=== PATIENT | female | born 1960 | race Caucasian/White ===

== ENCOUNTER 2018-06-12 14:53 | Inpatient (IN) ==
[2018-06-12] MEDS ORDERED: *HR* OxyCODONE Immed Rel 5 MG TABLET PO PRN ×2 (15:34→15:47)
[2018-06-12] MEDS ORDERED: D5% in Water 1,000 ML IVC PRN (15:46)
[2018-06-12] MEDS ORDERED: *HR* Dextrose 50 % in Water (Syg) 50 ML SYRINGE IVP PRN (15:46)
[2018-06-12] MEDS ORDERED: Dextrose Gel 15 GM/37.5 ML TUBE PO PRN ×2 (15:46)
[2018-06-12] MEDS ORDERED: Mag Hydrox/Al Hydrox/Simeth 30 ML UDC PO PRN (16:05)
[2018-06-12] MEDS ORDERED: Ondansetron ODT 4 MG TAB.RAPDIS SL PRN (16:05)
[2018-06-12] MEDS: Insulin LISPRO 300 UNITS/3 ML VIAL SQ SCH ×2 (17:25→20:08)
[2018-06-13] MEDS: *HR* Enoxaparin 40 MG/0.4 ML SYRINGE SQ SCH (05:49)
[2018-06-13] MEDS: Acetaminophen 325 MG TABLET PO PRN (05:49)
[2018-06-13 06:07] LABS: Basophils % 0.3 %; Eosinophils % 0.3 %; Hematocrit 25.9 % (35.3-44.9); Hemoglobin 8.6 g/dL (11.5-15.4); Immature Granulocytes % 0.4 % (0-4); Lymphocytes # 1.6 K/mcL (0.6-4.6); Lymphocytes % 17.5 %; Mean Corpuscular HGB Conc 33.2 g/dL (31.6-35.5); Mean Corpuscular Hemoglobin 32.1 pg (28.0-33.3); Mean Corpuscular Volume 96.6 fL (83.0-100.0); Mean Platelet Volume 11.3 fL (9.4-12.4); Monocytes # 0.8 K/mcL (0.0-1.3); Monocytes % 8.6 %; Neutrophils # 6.6 K/mcL (1.6-8.9); Platelet Count 132 K/mcL (140-400); Red Blood Count 2.68 M/mcL (3.82-4.97); Red Cell Distribution Width 12.8 % (11.5-14.5); Segmented Neutrophils % 72.9 %
[2018-06-13 06:13] LABS: INR 1.3; Prothrombin Time 14.4 Seconds (9.4-12.1)
[2018-06-13 06:16] LABS: Activated Partial Thrombo Time 26.1 Seconds (26.0-36.0)
[2018-06-13 06:24] LABS: BUN/Creatinine Ratio 21 (6-26); Blood Urea Nitrogen 16 mg/dL (6-20); Calcium 8.6 mg/dL (8.6-10.3); Carbon Dioxide 28 mEq/L (23-29); Chloride 104 mEq/L (98-107); Glucose 116 mg/dL (70-105); Osmolality,Calculated 288 (280-300); Potassium 3.3 mEq/L (3.5-5.1); Sodium 138 mEq/L (136-145); eGFR For Non-African Americans > 60 (> 60)
[2018-06-13] MEDS: Multivit/Ca/Min/Fe/FA 1 TAB TABLET PO SCH (08:33)
[2018-06-13] MEDS: *HR* Glimepiride 2 MG TABLET PO SCH (08:33)
[2018-06-13] MEDS: Cyanocobalamin (B-12) 1,000 MCG TABLET PO SCH (08:33)
[2018-06-13] MEDS: Cholecalciferol (D-3) 1,000 UNIT TABLET PO SCH (08:33)
[2018-06-13] MEDS: Aspirin 81 MG TAB.CHEW PO SCH (08:33)
[2018-06-13] MEDS: Insulin LISPRO 300 UNITS/3 ML VIAL SQ SCH ×4 (08:34→20:03)
[2018-06-13] MEDS: (Liraglutide [Victoza 2-Pak] 1.8 MG) SQ SCH (08:35)
--- NOTE | 2018-06-13 10:44 | Internal Med History&Physical ---
Addendum entered and electronically signed by Franklyn John MD 06/13/18 11:28: I have personally performed a face to face evaluation on this patient. I have r eviewed and agree with the care plan. History and Exam by me shows: Patient status post left total hip replacement at [place], Dr. Dowell, on 06/10/2018. She states her postoperative course is uneventful and she has been moving bowels and bladder well. She denies other postoperative complications ex cept itching with her sleep apnea mask which was new. Past medical history includes diabetes, [id number] achieved with Victoza, hypertension, hyperlipidemia, GERD, left breast cancer with lumpectomy, radiation and chemotherapy in 2004, benign breast lump right. She is allergic to adhesives and to penicillin. She had a heart catheterization about 2 years ago which showed only nonobstr uctive disease. As well as that noted above, she has bilateral carpal tunnel and a remote D&C. She works at [employer], is and lives with her , is a 87-50-qnyi-year smoking history but stopped about a year and half ago. She rarely drinks a beer or wine cooler. She smoked marijuana but over 30 years ago. She uses CPAP overnight for sleep apnea. She wears eyeglasses. She has acute blood loss anemia secondary to her surgery, as noted. Patient has no complaint of chest discomfort, dyspnea, orthopnea, breathing problems, palpitations, nausea or vomiting, constipation or diarrhea, other changes in bowel habits, heartburn, difficulty with urination, kidney problems or kidney stones, fevers chills or sweats, rash or itching, seizures, headache or lightheadedness, heat or cold intolerance, blood problems or anemia, or other new complaints, except as mentioned above. Review of systems is otherwise negative. Examination: (Except as mentioned above): General: In no apparent distress, alert and oriented 3. Head: Atraumatic and normocephalic. Eyes: Extraocular muscles are intact, pupils equal round and reactive to light and accommodation. Sclerae anicteric. Ears: External ears are normal to inspection and hearing is grossly normal. Nose: Patent without lesion noted. Mouth: No intraoral lesions seen. Dentition is unremarkable. Neck: Supple with trachea midline. There is no thyromegaly or adenopathy and carotids are 2+ without bruit heard. Respiratory: No use of accessory muscles. Lungs are clear throughout. Normal airflow. Cardiovascular: Regular rate and rhythm without murmur appreciated. Abdomen: Bowel sounds are normal. No hepatosplenomegaly masses or tenderness. Morbidly obese and therefore difficult to palpate deeply. Extremities: No cyanosis clubbing or edema. Neurological: A and O 3. Cranial nerves II through XII are intact. No focal deficits and no abnormal movements or postures. Skin: Warm and non-diaphoretic with no lesions noted. Breasts, pelvic and rectal: Not examined. is bringing her injectable diabetic medication and her home CPAP unit. She feels that she progressed well with therapy, this morning. She would prefer not to take oxycodone so this is changed to Ultram which she uses at home. We will continue therapies as planned as well as her home medical regimen. Original Note: Date of Encounter: 06/13/18 Time of Encounter: 10:40 Assessment and Plan (1) Status post total hip replacement, left Current visit: Yes Status: Acute Patient admitted to this facility for further rehabilitation due to deconditioning secondary to a left total hip replacement. Patient had a uneventful recovery at [facility]. Patient currently appears relaxed and denies any current discomforts. Patient states that current pain medication has been adequate. Patient's most recent hemoglobin had dropped to 8.6, most likely surgical blood loss anemia. We will continue to monitor with serial labs. Patient is participating in physical therapy. Surgical incision appears healthy. We will continue with current plan of care. (2) CAD (coronary artery disease) Current visit: Yes Status: Chronic No acute issues. Patient denies any chest discomforts or palpitations. Vital signs stable. We will continue with current plan of care. Qualifiers: Coronary Disease-Associated Artery/Lesion type: [place] artery [place] vs. transplanted heart: [place] heart Associated angina: without angina Qualified Code(s): I25.10 - Atherosclerotic heart disease of [place] coronary artery without angina pectoris (3) HTN (hypertension) Current visit: Yes Status: Chronic Vital signs are stable. We will continue with current medications. Qualifiers: Hypertension type: essential hypertension Qualified Code(s): I10 - Essential (primary) hypertension (4) DMII (diabetes mellitus, type 2) Current visit: No Status: Chronic No acute issues. We will continue with current medications. We will continue to monitor patient's glucose with fingersticks. Most recent hemoglobin A1c showed 6.0 Qualifiers: Diabetes mellitus retirement insulin use: with rn long term care use Diabetes mellitus complication status: with unspecified complications Qualified Code(s): E11.8 - Type 2 diabetes mellitus with unspecified complications; Z79.4 - termite treater helper (current) use of insulin Internal Medicine - H&P: HPI Chief complaint: left hip replacement Admitted From: Home Plans for Post Hospital Care: Home History of present illness: Ms. Meza is a 58 year old female, who was admitted to this facility for rehabilitation due to deconditioning secondary to left total hip replacement. Patient had a left total hip replacement was performed on 06/10/2018 and an [facility]. Patient had a history of advanced arthritis to her left hip. Patient's recovery at Hospital was uneventful and patient was transferred to this facility for further rehabilitation per physical therapy. Patient states that her pain is been well-tolerated with current medications. Patient's left hip incision appears healthy with dressing intact. Patient's presenting labs show a slight decrease in hemoglobin to 8.6, but patient remains asymptomatic with no signs of active bleeding. She denies any other discomforts or shortness of breath. Patient has history of CAD, HTN, and diabetes mellitus type 2. Past Med Surg Social Fam HX - Past Medical History Medical history: cancer, diabetes, GERD, hypertension Additional medical history: breast cancer left,fatty liver,elevated LFTs,sciatica,hypercholesterolemia,esophageal reflux,venous insufficiency,hypothyroidism,plantar fasciitis,panic attacks,stress urinary in continence,mid atypical ischemia exercise stress,moderate DD nml EF no valve disease,chest pressure Psychiatric history: anxiety - Past Surgical History Surgical History: breast surgery Additional surgical history: lumpectomy left side,biopsies right and left side,colonoscopy,dilatation and curettage,bilat. carpal tunnel,heart cath,bilateral hip injection - Social History Smoking Status: Never smoker Smokeless Tobacco Status: No Alcohol use: none Drug use: none - Family History Mother Living Status: Cause of : cva Hx Family Neuromuscular Disorders: Yes (CVA) Internal Medicine - H&P: Meds Acebutolol HCl 200 mg PO DAILY 06/10/18 [History] Calcium Carbonate/Vitamin D3 [Calcium 500 + Vit D Caplet] 1 tab PO DAILY 06/10/18 [History] Cholecalciferol (D-3) [Vitamin D] 1,000 unit PO DAILY 06/10/18 [History] Citalopram [CeleXA] 20 mg PO DAILY 06/10/18 [History] Cyanocobalamin (Vitamin B-12) [Vitamin B-12] 1,000 mcg PO DAILY 06/10/18 [History] Glimepiride [Amaryl] 2 mg PO DAILY 06/10/18 [History] Levothyroxine [Synthroid] 50 mcg PO 0630 06/10/18 [History] Liraglutide [Victoza 2-Darrell] 1.8 mg SQ DAILY 06/10/18 [History] Losartan Potassium [Cozaar] 100 mg PO DAILY 06/10/18 [History] Multivitamin [One-Daily Multi-Vitamin] 1 tab PO DAILY 06/10/18 [History] Pantoprazole Sodium [Protonix] 40 mg PO DAILY 06/10/18 [History] Simvastatin [Zocor] 40 mg PO HS 06/10/18 [History] Aspirin Enteric Coated [Aspirin EC] 325 mg PO BID #20 tablet.dr 06/11/18 [Rx] DiphenhydraMINE [Benadryl] 25 mg PO Q8HR PRN capsule 06/11/18 [Rx] Docusate [Colace] 100 mg PO BID #20 capsule 06/11/18 [Rx] Ferrous Sulfate 325 mg PO BIDWM tablet 06/11/18 [Rx] OxyCODONE Immed Rel [Roxicodone 5 MG] 5 mg PO Q6HR PRN 7 Days #28 tablet 06/11/18 [Rx] Allergy/AdvReac Type Severity Reaction Status Date / Time Penicillins [PCN] Allergy Rash Verified 06/10/18 10:28 adhesive AdvReac Blister Verified 06/10/18 10:28 All Systems PM: A 10-system review of systems was performed and is negative for pertinent findings except as documented above in the HPI. - Constitutional Constitutional: as per HPI, no chills, no fever(s), no night sweats - EENT Eyes: as per HPI, no change in vision, no discharge, no pain, no photophobia Ears: no ear discharge, no ear pain, no tinnitus Nose, mouth and throat: no dysphagia, no nasal discharge, no neck pain, no sore throat - Cardiovascular Cardiovascular ROS IM: as per HPI, no chest pain, no diaphoresis, no dyspnea, no lightheadedness, no palpitations, no syncope - Respiratory Respiratory: as per HPI, no cough, no dyspnea, no wheezing, no excessive phlegm production - Gastrointestinal Gastrointestinal: as per HPI, no abdominal pain, no diarrhea, no hematemesis, no hematochezia, no melena, no nausea, no vomiting - Genitourinary Genitourinary: no change in urinary stream, no dysuria, no flank pain, no hematuria - Musculoskeletal Musculoskeletal ROS IM: as per HPI, no numbness, no tingling - Integumentary Integumentary IM: as per HPI, no rash, no unusual bruising - Neurological Neurological ROS: as per HPI, no confusion, no convulsions, no focal weakness, no numbness, no tingling, no tremor(s) - Hematologic/Lymphatic Hematologic/Lymphatic: no easy bruising - Constitutional Vitals: Temp Pulse Resp BP Pulse Ox 98.7 F 98 18 104/72 93 06/13/18 08:00 06/13/18 08:00 06/13/18 08:00 06/13/18 08:00 06/13/18 08:00 General appearance: Present: A&O X 3, pleasant - Head Head exam: Present: atraumatic, normocephalic - Eye Eye exam: Present: PERRL, conjuntiva pink, sclera anicteric Pupils: Present: PERRL - Neck Neck exam general surgery: Present: supple, trachea midline. Absent: lym phadenopathy - Respiratory Respiratory exam: Present: CTAB. Absent: accessory muscle use, rales, rhonchi, wheezes Additional comments: Lungs are clear throughout upper vitals undiminished to bases. Respiratory effort appears relaxed. Patient denies any productive cough. - Cardiovascular Cardiovascular exam: Present: RRR, +S1, +S2. Absent: diastolic murmur, gallop, rubs, systolic murmur - GI/Abdominal GI/Abdominal exam: Present: normal bowel sounds, soft, no peritoneal signs. Absent: distended, tenderness - Extremities Exam Extremities exam: Present: warm, radial pulses palpable and symmetrical. Absent: calf tenderness, cyanotic, pedal edema Additional comments: Left hip shows slight edema. Surgical incision appears dry and intact. Minimal ecchymosis noted. - Neurological Exam Neurological exam: Present: CN II-XII intact, oriented X3, no focal deficits. Absent: pronater drift, facial droop, speech deficit - Skin Skin exam: Present: dry, intact Internal Med - H&P Results - Labs CBC & Chem 7: 06/13/18 05:40 06/13/18 05:40 Labs: Short CBC 06/13/18 Range/Units 05:40 WBC 9.1 (4.3-11.1) K/mcL Hgb 8.6 L (11.5-15.4) g/dL Hct 25.9 L (35.3-44.9) % Plt Count 132 L (140-400) K/mcL Neutrophils # 6.6 (1.6-8.9) K/mcL BMP 06/13/18 05:40 Sodium 138 Potassium 3.3 L Chloride 104 Carbon Dioxide 28 BUN 16 Creatinine 0.78 Glucose 116 H Calcium 8.6
[2018-06-13] MEDS ORDERED: traMADol 50 MG TABLET PO PRN (15:52)
[2018-06-13] MEDS: traMADol 50 MG TABLET PO PRN (16:28)
[2018-06-14] MEDS: Acetaminophen 325 MG TABLET PO PRN ×3 (02:09→21:31)
[2018-06-14] MEDS: *HR* Enoxaparin 40 MG/0.4 ML SYRINGE SQ SCH (06:30)
[2018-06-14] MEDS: Insulin LISPRO 300 UNITS/3 ML VIAL SQ SCH ×4 (07:36→21:30)
[2018-06-14] MEDS: (Liraglutide [Victoza 2-Pak] 1.8 MG) SQ SCH (07:59)
[2018-06-14] MEDS: Aspirin 81 MG TAB.CHEW PO SCH (08:06)
[2018-06-14] MEDS: Multivit/Ca/Min/Fe/FA 1 TAB TABLET PO SCH (08:06)
[2018-06-14] MEDS: Cholecalciferol (D-3) 1,000 UNIT TABLET PO SCH (08:06)
[2018-06-14] MEDS: Cyanocobalamin (B-12) 1,000 MCG TABLET PO SCH (08:06)
[2018-06-14] MEDS: *HR* Glimepiride 2 MG TABLET PO SCH (08:06)
--- NOTE | 2018-06-14 10:51 | Internal Med Progress Note ---
Addendum entered and electronically signed by Franklyn John MD 06/14/18 12:14: I have personally performed a face to face evaluation on this patient. I have r eviewed and agree with the care plan. History and Exam by me shows: Patient is without problem or much pain. She is getting ready for discharge, tomorrow. She is progressing well with therapies and they feel she is safe to go home. She has no questions and I told her we have begun her discharge paperwork. Discussed care with other providers and/or nursing. Patient has no complaint of chest discomfort, dyspnea, orthopnea, palpitations, nausea or vomiting, constipation or diarrhea, other changes in bowel habits, difficulty with urination, rash or itching, or other new complaints, except as mentioned above. Review of systems is otherwise negative. Examination: (Except as mentioned above): General: In no apparent distress. Alert and oriented 3. Nondiaphoretic. Head: Atraumatic and normocephalic. Respiratory: No use of accessory muscles. Lungs are clear throughout. Normal airflow. Cardiovascular: Regular rate and rhythm without murmur appreciated. Abdomen: Bowel sounds are normal. No hepatosplenomegaly mass or tenderness appreciated. Morbidly obese and therefore difficult to palpate deeply. Extremities: No cyanosis clubbing or edema. Wound looks dry and intact. Skin: Warm and non-diaphoretic with no new lesions noted. Original Note: Date of Encounter: 06/14/18 Time of Encounter: 10:48 - Assessment and plan (1) Status post total hip replacement, left Current Visit: Yes Status: Acute Assessment and plan: Doing well. Pain well managed. Progressing well with PT/OT. Preparing for possible DC to home in the morning. Incision appears healthy. (2) CAD (coronary artery disease) Current Visit: Yes Status: Chronic Assessment and plan: No acute issues. Patient appears relaxed and denies any chest discomforts or palpitations. Will continue on current meds. Qualifiers: Coronary Disease-Associated Artery/Lesion type: [place] artery [place] vs. transplanted heart: [place] heart Associated angina: without angina Qualified Code(s): I25.10 - Atherosclerotic heart disease of [place] coronary artery without angina pectoris (3) HTN (hypertension) Current Visit: Yes Status: Chronic Assessment and plan: VS stable. Continue on current meds. Qualifiers: Hypertension type: essential hypertension Qualified Code(s): I10 - Essential (primary) hypertension (4) DMII (diabetes mellitus, type 2) Current Visit: No Status: Chronic Assessment and plan: No aucte issues. Glucose well controlled. Will continue on current coverage. Qualifiers: Diabetes mellitus middle or intermediate school principal insulin use: with halfway use Diabetes mellitus complication status: with unspecified complications Qualified Code(s): E11.8 - Type 2 diabetes mellitus with unspecified complications; Z79.4 - buttermaker helper (current) use of insulin - Time Spent With Patient less than 15 minutes - Subjective Interval history: Patient appears relaxed and denies any current discomforts or dyspnea. States that her pain continues to be well managed with current meds. Patient states that she feels she is ready for DC to home and is asking if she could continue therapy at home. Denies any other issues. - Constitutional Vitals: Temp Pulse Resp BP Pulse Ox 97.8 F 73 16 107/70 98 06/14/18 06:46 06/14/18 06:46 06/14/18 06:46 06/14/18 06:46 06/14/18 06:46 General appearance: Present: A&O X 3, pleasant - Head Head exam: Present: atraumatic, normocephalic - Eye Eye exam: Present: PERRL, conjuntiva pink, sclera anicteric Pupils: Present: PERRL - Neck Neck exam general surgery: Present: supple, trachea midline. Absent: lymphadenopathy - Respiratory Respiratory exam: Present: CTAB. Absent: accessory muscle use, rales, rhonchi, wheezes - Cardiovascular Cardiovascular exam: Present: RRR, +S1, +S2. Absent: diastolic murmur, gallop, rubs, systolic murmur - GI/Abdominal GI/Abdominal exam: Present: normal bowel sounds, soft, no peritoneal signs. Absent: distended, tenderness - Extremities Exam Extremities exam: Present: warm, radial pulses palpable and symmetrical. Absent: calf tenderness, cyanotic, pedal edema Additional comments: Left hip incision appears healthy. Minimal echymosis noted. - Neurological Exam Neurological exam: Present: CN II-XII intact, oriented X3, no focal deficits. Absent: pronater drift, facial droop, speech deficit - Skin Skin exam: Present: dry, intact Internal Medicine: Result - Labs CBC & Chem 7: 06/13/18 05:40 06/13/18 05:40 - ABG Interpretation ABG results: PT/INR, D-dimer PT 14.4 Seconds (9.4-12.1) H 06/13/18 05:40 Consult Discharge Plan - Plan Referrals: Get Dowell MD [Partnered Physician] - 07/10/18 4:50 pm (POW#4 LTHR Robotic 06/10/18) Linda Garay, PAC [Physician Fitness Management Director] - (06/20/18 at 9:30am: xrays POD#10 LTHR Robotic 06/10/18 06/28/18 at 8:15am: POW#2 LTHR Robotic 06/10/18 ) Teja Limon DPM [Partnered Physician] - 06/21/18 8:15 am (dm foot care [facility]ICK 04/16/18) NONE,PCP [Primary Care Provider] -
--- NOTE | 2018-06-14 11:26 | Discharge Summary ---
Date of Encounter: 06/14/18 Time of Encounter: 11:23 - Discharge Diagnosis (1) Status post total hip replacement, left Priority: Primary Status: Acute Comments: Patient had a left total hip replacement. Uneventful recovery at hospital and progressed well with PT/OT. Walking unassisted with walker. Will continue PT through home health services. Will have Ortho f/u on Jun 20. Continue f/u with PCP (2) CAD (coronary artery disease) Priority: Secondary Status: Chronic Comments: No issues during stay at facility. Continue current meds and f/u with PCP. Qualifiers: Coronary Disease-Associated Artery/Lesion type: [place] artery [place] vs. transplanted heart: [place] heart Associated angina: without angina Qualified Code(s): I25.10 - Atherosclerotic heart disease of [place] coronary artery without angina pectoris (3) HTN (hypertension) Priority: Secondary Status: Chronic Comments: VSS. No issues during stay. Continue on home meds and f/u with PCP. Qualifiers: Hypertension type: essential hypertension Qualified Code(s): I10 - Essential (primary) hypertension (4) DMII (diabetes mellitus, type 2) Priority: Secondary Status: Chronic Comments: Well controlled during stay. Continue with home meds and f/u with PCP Qualifiers: Diabetes mellitus nursing home insulin use: with nursing home use Diabetes mellitus complication status: with unspecified complications Qualified Code(s): E11.8 - Type 2 diabetes mellitus with unspecified complications; Z79.4 - [facility] (current) use of insulin Hospital course: Ms. Meza is a 58 year old female, who admitted to this facility for further rehabilitation due to deconditioning, secondary to a left total hip replacement. Patient had a uneventful recovery at [facility]. Patient currently appears relaxed and denies any current discomforts. Patient states that current pain medication has been adequate. Patient has been progrssing well in physical therapy. Surgical incision appears healthy with minimal ecchymosis. Will f/u with Ortho on Jun 20. F/u with PCP in one week. Continue HH services with PT and Nx. Discharge discussed with: patient Time spent discussing smoking cessation with patient: 3 to 10 minutes - Time Spent with Patient Total time spent providing and/or coordinating discharge services: Less than 30 minutes - Discharge Medications Home Medications: Acebutolol HCl 200 mg PO DAILY 06/10/18 [History] Calcium Carbonate/Vitamin D3 [Calcium 500 + Vit D Caplet] 1 tab PO DAILY 06/10/18 [History] Cholecalciferol (D-3) [Vitamin D] 1,000 unit PO DAILY 06/10/18 [History] Citalopram [CeleXA] 20 mg PO DAILY 06/10/18 [History] Cyanocobalamin (Vitamin B-12) [Vitamin B-12] 1,000 mcg PO DAILY 06/10/18 [History] Glimepiride [Amaryl] 2 mg PO DAILY 06/10/18 [History] Levothyroxine [Synthroid] 50 mcg PO 0630 06/10/18 [History] Liraglutide [Victoza 2-Darrell] 1.8 mg SQ DAILY 06/10/18 [History] Losartan Potassium [Cozaar] 100 mg PO DAILY 06/10/18 [History] Multivitamin [One-Daily Multi-Vitamin] 1 tab PO DAILY 06/10/18 [History] Pantoprazole Sodium [Protonix] 40 mg PO DAILY 06/10/18 [History] Simvastatin [Zocor] 40 mg PO HS 06/10/18 [History] Aspirin Enteric Coated [Aspirin EC] 325 mg PO BID #20 tablet. 06/11/18 [Rx] DiphenhydraMINE [Benadryl] 25 mg PO Q8HR PRN capsule 06/11/18 [Rx] Docusate [Colace] 100 mg PO BID #20 capsule 06/11/18 [Rx] Ferrous Sulfate 325 mg PO BIDWM tablet 06/11/18 [Rx] OxyCODONE Immed Rel [Roxicodone 5 MG] 5 mg PO Q6HR PRN 7 Days #28 tablet 06/11/18 [Rx] Allergies/Adverse Reactions: Allergy/AdvReac Type Severity Reaction Status Date / Time Penicillins [PCN] Allergy Rash Verified 06/10/18 10:28 adhesive AdvReac Blister Verified 06/10/18 10:28 Date of admission: 06/12/18 14:55 Primary care physician: PCP NONE Consults: 06/12/18 15:23 Consult to Occupational Therapy [CONS] Routine Comment: Evaluate, develop and implement POC Reason for Consult: left THR Does patient have active BEDREST order?: No Is patient medically & hemodynamically stable?: Yes Consult to Physical Therapy [CONS] Routine Comment: Evaluate, develop and implement POC Reason for Consult: Left THR Does patient have active BEDREST order?: No Is patient medically & hemodynamically stable?: Yes Consult to Recreational Therapy [CONS] Routine Comment: Evaluate, develop and implement POC Consult to Radiation Officer [CONS] Routine Reason for SW Consult: discharge planning - Constitutional Vitals: Temp Pulse Resp BP Pulse Ox 97.8 F 73 16 107/70 98 06/14/18 06:46 06/14/18 06:46 06/14/18 06:46 06/14/18 06:46 06/14/18 06:46 General appearance: Present: A&O X 3, pleasant - Head Head exam: Present: atraumatic, normocephalic - Eye Eye exam: Present: PERRL, conjuntiva pink, sclera anicteric Pupils: Present: PERRL - Neck Neck exam general surgery: Present: supple, trachea midline. Absent: lymphade nopathy - Respiratory Respiratory exam: Present: CTAB. Absent: accessory muscle use, rales, rhonchi, wheezes - Cardiovascular Cardiovascular exam: Present: RRR, +S1, +S2. Absent: diastolic murmur, gallop, rubs, systolic murmur - GI/Abdominal GI/Abdominal exam: Present: normal bowel sounds, soft, no peritoneal signs. Absent: distended, tenderness - Extremities Exam Extremities exam: Present: warm, radial pulses palpable and symmetrical. Absent: calf tenderness, cyanotic, pedal edema Additional comments: Left hip incision healthy with minimal ecchymosis - Neurological Exam Neurological exam: Present: CN II-XII intact, oriented X3, no focal deficits. Absent: pronater drift, facial droop, speech deficit - Skin Skin exam: Present: dry, intact - Patient Status Disposition: Home Health Service Condition: Good Functional capacity at discharge: uses cane/walker Overall status at discharge: patient is progressing back to baseline - Discharge Instructions Follow Up With: Get Dowell MD [Partnered Physician] - 07/10/18 4:50 pm (POW#4 LTHR Robotic 06/10/18) Linda Garay PAC [Physician Car Knocker] - (06/20/18 at 9:30am: xrays POD#10 LTHR Robotic 06/10/18 06/28/18 at 8:15am: POW#2 LTHR Robotic 06/10/18 ) Teja Limon DPM [Partnered Physician] - 06/21/18 8:15 am (dm foot care [facility] 04/16/18) NONE,PCP [Primary Care Provider] - - Diet and Activity Activity: ambulate only with your walker, as per physical therapy Diet: diabetic diet, low fat, low cholesterol, low salt diet
[2018-06-14] MEDS: traMADol 50 MG TABLET PO PRN (11:38)
[2018-06-15] MEDS: Acetaminophen 325 MG TABLET PO PRN (06:09)
[2018-06-15] MEDS: Insulin LISPRO 300 UNITS/3 ML VIAL SQ SCH ×2 (07:33→12:05)
[2018-06-15] MEDS: Cyanocobalamin (B-12) 1,000 MCG TABLET PO SCH (09:17)
[2018-06-15] MEDS: Aspirin 81 MG TAB.CHEW PO SCH (09:17)
[2018-06-15] MEDS: *HR* Glimepiride 2 MG TABLET PO SCH (09:17)
[2018-06-15] MEDS: Cholecalciferol (D-3) 1,000 UNIT TABLET PO SCH (09:17)
[2018-06-15] MEDS: Multivit/Ca/Min/Fe/FA 1 TAB TABLET PO SCH (09:18)
[2018-06-15] MEDS: (Liraglutide [Victoza 2-Pak] 1.8 MG) SQ SCH (09:18)
[2018-06-15 09:26] VITALS: BP 109/71
--- NOTE | 2018-06-17 09:49 | Physician Discharge Referral ---
Home Health/Hosp Referral Info Transfer to: Home Health Provider in Charge Post Discharge: PCP - Diagnosis (1) Status post total hip replacement, left Priority: Primary Status: Acute (2) CAD (coronary artery disease) Priority: Secondary Status: Chronic (3) HTN (hypertension) Priority: Secondary Status: Chronic (4) DMII (diabetes mellitus, type 2) Priority: Secondary Status: Chronic - Respiratory Orders Smoking Cessation: Smoking cessation has been advised. For more information, call the [place] Tobacco Quit Line at 0-869-VDTN-NOW. - Diet/Nutrition Diet/Nutrition Orders: Cardiac, No Concentrated Sweets - Services Needed Following services are medically necessary services: Nursing, Physical Therapy - Transfer Medications Home Medications: Acebutolol HCl 200 mg PO DAILY 06/10/18 [History] Calcium Carbonate/Vitamin D3 [Calcium 500 + Vit D Caplet] 1 tab PO DAILY 06/10/18 [History] Cholecalciferol (D-3) [Vitamin D] 1,000 unit PO DAILY 06/10/18 [History] Citalopram [CeleXA] 20 mg PO DAILY 06/10/18 [History] Cyanocobalamin (Vitamin B-12) [Vitamin B-12] 1,000 mcg PO DAILY 06/10/18 [History] Glimepiride [Amaryl] 2 mg PO DAILY 06/10/18 [History] Levothyroxine [Synthroid] 50 mcg PO 0630 06/10/18 [History] Liraglutide [Victoza 2-Darrell] 1.8 mg SQ DAILY 06/10/18 [History] Losartan Potassium [Cozaar] 100 mg PO DAILY 06/10/18 [History] Multivitamin [One-Daily Multi-Vitamin] 1 tab PO DAILY 06/10/18 [History] Pantoprazole Sodium [Protonix] 40 mg PO DAILY 06/10/18 [History] Simvastatin [Zocor] 40 mg PO HS 06/10/18 [History] Aspirin Enteric Coated [Aspirin EC] 325 mg PO BID #20 tablet. 06/11/18 [Rx] DiphenhydraMINE [Benadryl] 25 mg PO Q8HR PRN capsule 06/11/18 [Rx] Docusate [Colace] 100 mg PO BID #20 capsule 06/11/18 [Rx] Ferrous Sulfate 325 mg PO BIDWM tablet 11/27/18 [Rx] OxyCODONE Immed Rel [Roxicodone 5 MG] 5 mg PO Q6HR PRN 7 Days #28 tablet 06/11/18 [Rx] Allergies/Adverse Reactions: Allergy/AdvReac Type Severity Reaction Status Date / Time Penicillins [PCN] Allergy Rash Verified 06/10/18 10:28 adhesive AdvReac Blister Verified 06/10/18 10:28 Certification: Further, I certify that my clinical findings support that this patient is homebound (i.e. absences from home require considerable and taxing effort and are for medical reasons or episcopal services or infrequently or short duration when for other reasons) because: Homebound Reason: Post-surgery restriction and or conditions limit ability to leave home, Leaving home requires considerable and taxing effort due to condition Attestation: My signature below is to certify that this patient is under my care and that I, or nurse practitioner, or a physician's pharmacy assistant working with me, has a [id number] encounter with this patient.
== END 2018-06-15 13:56 | disposition home health service (06) | DRG 560 ==
LOC: INPGRE 14:55